=== PATIENT | female | born 1990 | race Caucasian/White ===

== ENCOUNTER → 2018-02-12 | Outpatient (CLI) | payer OTHER ==
[2015-12-12 21:47] VITALS: BP 120/78
[2018-02-13 13:48] LABS: FREE T4 1.26 ng/dL (0.76-1.46); THYROID STIM HORMONE (TSH) 1.899 uIU/mL (0.358-3.740)
== END | disposition home or self-care (01) ==
LOC: LAB 12:08
PROVIDERS: ATTEND Internal Medicine Endocrinology, Diabetes & Metabolism
DX: E03.8 Other specified hypothyroidism (principal)
CPT/HCPCS: 84439; 84443

== ENCOUNTER → 2018-04-28 | Outpatient (CLI) | payer OTHER ==
[2015-12-12 21:47] VITALS: BP 120/78
[2018-04-28 11:46] LABS: BASO # 0.1 x10^3/uL (0.0-0.2); BASO % 2 % (0-3); EOS # 0.7 x10^3/uL (0.0-0.7); EOS % 16 % (0-3); HEMOGLOBIN 15.2 g/dL (12.0-15.5); LYMPH # 1.3 x10^3/uL (1.0-4.8); LYMPH % 31 % (24-48); MEAN CORPUSCULAR HEMOGLOBIN 32 pg (25-35); MEAN CORPUSCULAR HGB CONC 35 g/dL (31-37); MEAN CORPUSCULAR VOLUME 93 fL (79-100); MONO # 0.3 x10^3/uL (0.0-1.1); MONO % 6 % (0-9); NEUT % 46 % (31-73); PLATELET COUNT 161 x10^3/uL (140-400); RED BLOOD COUNT 4.72 x10^6/uL (3.50-5.40); RED CELL DISTRIBUTION WIDTH 12.3 % (11.5-14.5); WHITE BLOOD COUNT 4.3 x10^3/uL (4.0-11.0)
[2018-04-28 12:03] LABS: ALBUMIN 3.9 g/dL (3.4-5.0); CREATININE 0.8 mg/dL (0.6-1.0); GFR 85.4; TOTAL BILIRUBIN 0.6 mg/dL (0.2-1.0); TOTAL PROTEIN 7.8 g/dL (6.4-8.2)
[2018-04-29 09:10] LABS: DHEA SO4 160.2 ug/dL (84.8-378.0); FSH 8.6 mIU/mL (.)
[2018-04-29 11:14] LABS: HEMOGLOBIN A1C 4.5 % (4.8-5.6)
[2018-04-30 15:08] LABS: INSULIN LEVEL 7.2 uIU/mL (2.6-24.9)
== END | disposition home or self-care (01) ==
LOC: LAB 11:08
PROVIDERS: ATTEND Obstetrics & Gynecology
DX: N94.6 Dysmenorrhea, unspecified (principal); E03.9 Hypothyroidism, unspecified; E87.6 Hypokalemia; R56.9 Unspecified convulsions
CPT/HCPCS: 80053; 80061; 82306; 82627; 83001; 83002; 83036; 83525; 84146; 84402; 84403; 85025

== ENCOUNTER → 2018-05-04 | Outpatient (CLI) | payer OTHER ==
[2015-12-12 21:47] VITALS: BP 120/78
--- NOTE | 2018-05-04 16:46 | RAD ---
EXAM: Pelvic sonogram. HISTORY: Dysmenorrhea. TECHNIQUE: Transabdominal and transvaginal sonographic imaging of the pelvis was performed. COMPARISON: None. FINDINGS: The uterus is retroverted. The endometrial stripe measures 4.8 mm in thickness. The uterus measures 6.3 x 4.9 x 2.8 cm. The ovaries are normal in size and demonstrate normal blood flow. There are several small ovarian follicles. There is a dominant left ovarian follicle with internal echoes measuring 1.2 cm. There is no pelvic free fluid. IMPRESSION: 1. Retroverted uterus. 2. Multiple ovarian follicles with a dominant left ovarian follicle with internal echoes measuring 1.2 cm. Electronically signed by: Danyell Izquierdo MD (05/04/2018 4:43 PM) [id number]
== END | disposition home or self-care (01) ==
LOC: US 12:52
PROVIDERS: ATTEND Obstetrics & Gynecology
DX: N85.4 Malposition of uterus (principal); E87.6 Hypokalemia; E03.8 Other specified hypothyroidism; R56.9 Unspecified convulsions
CPT/HCPCS: 76830; 76856

== ENCOUNTER → 2018-10-28 | Outpatient (CLI) | payer OTHER ==
[2015-12-12 21:47] VITALS: BP 120/78
== END | disposition home or self-care (01) ==
LOC: LAB 09:16
PROVIDERS: ATTEND Obstetrics & Gynecology
DX: N92.6 Irregular menstruation, unspecified (principal)
CPT/HCPCS: 36415; 84144

== ENCOUNTER → 2019-04-05 | Outpatient (CLI) | payer OTHER ==
[2015-12-12 21:47] VITALS: BP 120/78
== END | disposition home or self-care (01) ==
LOC: LAB 10:25
PROVIDERS: ATTEND Obstetrics & Gynecology
DX: N92.6 Irregular menstruation, unspecified (principal)
CPT/HCPCS: 36415; 84144

== ENCOUNTER → 2019-05-03 | Outpatient (CLI) | payer OTHER ==
[2015-12-12 21:47] VITALS: BP 120/78
== END | disposition home or self-care (01) ==
LOC: LAB 09:02
PROVIDERS: ATTEND Obstetrics & Gynecology
DX: N92.6 Irregular menstruation, unspecified (principal)
CPT/HCPCS: 36415; 84144

== ENCOUNTER → 2019-06-28 | Outpatient (CLI) | payer OTHER ==
[2015-12-12 21:47] VITALS: BP 120/78
== END | disposition home or self-care (01) ==
LOC: LAB 06:38
PROVIDERS: ATTEND Obstetrics & Gynecology
DX: N92.6 Irregular menstruation, unspecified (principal)
CPT/HCPCS: 36415; 84144

== ENCOUNTER → 2019-07-23 | Outpatient (CLI) | payer OTHER ==
[2015-12-12 21:47] VITALS: BP 120/78
== END | disposition home or self-care (01) ==
LOC: LAB 12:12
PROVIDERS: ATTEND Obstetrics & Gynecology
DX: N92.6 Irregular menstruation, unspecified (principal)
CPT/HCPCS: 36415; 84144

== ENCOUNTER → 2020-02-14 | Outpatient (CLI) | payer OTHER ==
[2015-12-12 21:47] VITALS: BP 120/78
[2020-02-14 16:48] LABS: FREE T4 1.31 ng/dL (0.76-1.46)
[2020-02-14 16:49] LABS: THYROID STIM HORMONE (TSH) 0.901 uIU/mL (0.358-3.740)
== END | disposition home or self-care (01) ==
LOC: LAB 06:47
PROVIDERS: ATTEND Obstetrics & Gynecology Reproductive Endocrinology
DX: Z31.41 Encounter for fertility testing (principal)
CPT/HCPCS: 84439; 84443